=== PATIENT | female | born 1980 | race Caucasian/White ===

== ENCOUNTER → 2020-09-11 | Outpatient (CLI) | payer OTHER ==
[~2020-09-11] MED LIST: BACTRIM DS TAB1 EACH PO; CYCLOBENZAPRINE5 MG PO; IMITREX50 MG PO; KEFLEX CAP 500500 MG PO; LEVAQUIN TAB 5500 MG PO; LORTAB 7.5-3251 EACH PO; MACROBID 100 M100 M1 PO; METFORMIN HCL500 M1 PO; MIRALAX17 GM PO; NAPROSYN500 MG PO; NEURONTIN 100100 MG PO; NEURONTIN 300300 MG PO; NOVOLOG100 UNIT/1 SC; PROZAC20 MG PO; SENOKOT-S TABL1 EACH PO; VITAMIN B-121000 MC2 SL; WELLBUTRIN SR150 MG PO; ZOFRAN ODT 4 MG4 MG PO
== END ==
LOC: US 08:30 → KOH-I 08:30 → US 09:37
DX: K76.0 Fatty (change of) liver, not elsewhere classified (principal)
CPT/HCPCS: 76705

== ENCOUNTER 2020-10-23 12:37 | Emergency (ER) | payer OTHER ==
[~2020-10-23 12:37] MED LIST changes: -CYCLOBENZAPRINE5 MG PO; -MACROBID 100 M100 M1 PO; -NAPROSYN500 MG PO
[2020-10-23] MEDS ORDERED: NAPROSYN500 MG PO (15:33)
[2020-10-23] MEDS ORDERED: CYCLOBENZAPRINE5 MG PO (15:33)
[2020-10-23] MEDS ORDERED: MACROBID 100 M100 M1 PO (15:34)
== END 2020-10-23 15:34 | disposition home or self-care (01) ==
LOC: ER1 12:37
DX: S39.012A Strain of muscle, fascia and tendon of lower back, initial encounter (principal); M54.42 Lumbago with sciatica, left side; N39.0 Urinary tract infection, site not specified; E11.9 Type 2 diabetes mellitus without complications; F17.200 Nicotine dependence, unspecified, uncomplicated; Z88.1 Allergy status to other antibiotic agents; Z79.899 Other long term (current) drug therapy
CPT/HCPCS: 72100; 81001; 84703; 96372; 99283; J1885

== ENCOUNTER 2021-01-05 11:36 | Emergency (ER) | payer OTHER ==
[~2021-01-05 11:36] MED LIST changes: +CYCLOBENZAPRINE5 MG PO; +MACROBID 100 M100 M1 PO; +NAPROSYN500 MG PO
[2021-01-05 15:40] LABS: BUN/CREATININE RATIO 13 (0-10)
[2021-01-05 16:43] LABS: HEMOGLOBIN 11.9 gm/dl (12.3-15.3); RED BLOOD COUNT 4.16 M/UL (4.00-5.10); WHITE BLOOD COUNT 12.1 K/UL (4.5-11.0)
[2021-01-05] MEDS ORDERED: CYCLOBENZAPRINE5 MG PO (20:57)
[2021-01-05] MEDS ORDERED: PERCOCET 5/325 T1 EA PO (21:03)
== END 2021-01-05 21:16 | disposition home or self-care (01) ==
LOC: ER1 11:36
PROVIDERS: Physician Assistant
DX: M54.42 Lumbago with sciatica, left side (principal); G95.9 Disease of spinal cord, unspecified; E11.9 Type 2 diabetes mellitus without complications; I10 Essential (primary) hypertension; F17.200 Nicotine dependence, unspecified, uncomplicated; Z88.8 Allergy status to other drugs, medicaments and biological substances
CPT/HCPCS: 72131; 80053; 81001; 84703; 85025; 85652; 86140; 87040; 99283

== ENCOUNTER 2021-02-03 11:51 | Emergency (ER) | payer OTHER ==
[~2021-02-03 11:51] MED LIST changes: +PERCOCET 5/325 T1 EA PO
[2021-02-03] MEDS ORDERED: MACROBID 100 M100 M1 PO (14:02)
== END 2021-02-03 15:20 | disposition home or self-care (01) ==
LOC: ER1 11:51
DX: N39.0 Urinary tract infection, site not specified (principal); E11.9 Type 2 diabetes mellitus without complications; I10 Essential (primary) hypertension; F17.210 Nicotine dependence, cigarettes, uncomplicated; Z88.8 Allergy status to other drugs, medicaments and biological substances
CPT/HCPCS: 81001; 87086; 99283